=== PATIENT | male | born 1990 | race Caucasian/White ===

== ENCOUNTER 2016-05-12 08:08 | Emergency (ER) | payer OTHER ==
[~2016-05-12 08:08] MED LIST: ORUDIS75 M1 PO
== END 2016-05-12 09:09 | disposition home or self-care (01) ==
LOC: CFTX 08:08
DX: L02.413 Cutaneous abscess of right upper limb (principal); Z87.891 Personal history of nicotine dependence
CPT/HCPCS: 10060; 87070; 87077; 87186; 87205; 99283

== ENCOUNTER 2016-05-14 23:58 | Emergency (ER) | payer OTHER | END 2016-05-15 01:14 | disposition home or self-care (01) | LOC: CED 23:58 | DX: L03.312 Cellulitis of back [any part except buttock and flank] (principal); L03.113 Cellulitis of right upper limb; L02.212 Cutaneous abscess of back [any part, except buttock and flank]; L02.413 Cutaneous abscess of right upper limb; F17.200 Nicotine dependence, unspecified, uncomplicated | CPT/HCPCS: 99282 ==